=== PATIENT | male | born 1970 | race Caucasian/White ===

== ENCOUNTER 2017-05-03 09:26 | Day surgery (SDC) | payer OTHER ==
[2017-05-02 14:49] VITALS: BMI 24.4
[~2017-05-03 09:26] MED LIST: BUPIVACAINE HCL/PF 0.25% (2.5MG/ML) 10 ML VIAL IJ ONE; methylPREDNISolone ACET (DEPO) 40 MG/1 ML VIAL IM ONE; oxyCODONE HCL 10 MG SUSTAINED ACTING TABLET PO ONE
--- NOTE | 2017-05-03 11:03 | HP ---
History & Physical Update - History History: No Change - Physical Physical: No Change - Assessment Assessment: No Change - Plan Plan: No Change
[2017-05-03] MEDS ORDERED: THROMBIN (BOVINE) 5,000 UNIT VIAL TP ONE ×2 (11:14→12:52)
[2017-05-03] MEDS ORDERED: methylPREDNISolone ACET (DEPO) 40 MG/1 ML VIAL ONE (11:14)
[2017-05-03] MEDS ORDERED: BUPIVACAINE HCL/PF 2.5 MG/ML - 30 ML VIAL IJ ONE (11:15)
[2017-05-03] MEDS ORDERED: LIDOCAINE 1%/EPI 1:100000 (20 ML MULTI DOSE VIAL) ONE (11:15)
[2017-05-03] MEDS ORDERED: PROPOFOL 20 ML ONE ×3 (11:25→11:27)
[2017-05-03] MEDS ORDERED: MIDAZOLAM HCL 2 MG/2 ML SINGLE DOSE VIAL ONE (11:25)
[2017-05-03] MEDS ORDERED: BUPIVACAINE HCL/PF 0.5% (5MG/ML) 10 ML VIAL ONE (11:35)
[2017-05-03] MEDS ORDERED: ceFAZolin SODIUM 1 GM VIAL ONE (11:40)
[2017-05-03] MEDS ORDERED: LIDOCAINE 1%/EPI 1:100000 (20 ML MULTI DOSE VIAL) INF ONE (12:10)
[2017-05-03] MEDS ORDERED: DEXAMETHASONE SOD PHOSPHATE 4 MG/1 ML VIAL ONE (12:17)
[2017-05-03] MEDS ORDERED: ONDANSETRON 4 MG/2 ML VIAL ONE (12:17)
[2017-05-03] MEDS ORDERED: BUPIVACAINE HCL/PF 0.25% (2.5MG/ML) 10 ML VIAL IJ ONE ×2 (13:04)
[2017-05-03] MEDS ORDERED: methylPREDNISolone ACET (DEPO) 40 MG/1 ML VIAL IM ONE (13:04)
[2017-05-03] MEDS ORDERED: PROMETHAZINE HCL 25 MG/1 ML VIAL IVPUSH PRN (13:34)
[2017-05-03] MEDS ORDERED: oxyCODONE HCL 5 MG TABLET PO PRN (13:34)
[2017-05-03] MEDS ORDERED: LACTATED RINGERS SOLUTION 1,000 ML IV SCH (13:45)
--- NOTE | 2017-05-03 15:02 | OP ---
Operative Note - Note: Operative Date: 05/03/17 Pre-Operative Diagnosis: L5-S1 spinal stenosis Operation: L5-S1 laminectomy Post-Operative Diagnosis: Same as Pre-op Surgeon: José Subramanian Dry Wall Installer: Dari De La Cruz Anesthesiologist/METAL REFINER: Bright Riggs Anesthesia: Spinal Estimated Blood Loss (mls): 20 Fluid Volume Replaced (mls): 1,400 Operative Report Dictated: Yes
--- NOTE | 2017-05-03 15:04 | SURG ---
Surgery Test Engineer Note Test Engineer: Dari De La Cruz PA-C Date of Service: 05/03/17 Diagnosis: L5-S1 spinal stenosis Procedure: L5-S1 laminectomy I was present for the entirety of the operative procedure. For further detail, please refer to operative report. Visit type - Case Type Case Type: Scheduled Admission - Emergency Emergency Visit: No - New patient This patient is new to me today: Yes Date on this admission: 05/03/17 - Critical Care Critical Care patient: No
[2017-05-03 16:55] VITALS: BP 125/67; PULSE 67; TEMP 98
--- NOTE | 2017-05-04 11:44 | OP ---
DATE OF OPERATION: 05/03/2017 PREOPERATIVE DIAGNOSIS: Spinal stenosis, L5-S1 POSTOPERATIVE DIAGNOSIS: Spinal stenosis, L5-S1. PROCEDURE: Laminectomy, L5-S1. SURGEON: José Subramanian MD BONDERIZER OPERATOR: SHARLA Camarena ESTIMATED BLOOD LOSS: 50 mL. INTRAVENOUS FLUIDS: Per Anesthesia. ANESTHESIA: Spinal. COMPLICATIONS: None. DISPOSITION: Patient brought to the PACU in stable condition. INDICATIONS FOR SURGERY: The patient is a 46-year-old gentleman who has been suffering from pain from his back down his legs. X-rays and MRI were completed, which noted that he had spinal stenosis at L5-S1. He had gone through an exhaustive course of treatment for this which included medications, physical therapy, as well as injections. Unfortunately, his pain continued to persist despite all this. At this point, risks, benefits, and alternatives were discussed, and the patient consented to surgery. OPERATIVE NOTE: Patient was brought to the operating room by the anesthesia staff. After appropriate patient identification was performed and spinal anesthesia was given, he was placed prone onto the Nikhil frame with all areas of bony prominences well padded. At this time, Tuohy needles were placed into his back to tucker off the L5-S1 segment. An x-ray was taken to confirm the needles track. The needle was removed, and 10 mL of lidocaine with epinephrine was injected into his back at this time. His back was prepped and draped in a sterile manner. At this point, a time-out was completed. An incision was made from the top of L5 down to the bottom of S1. Dissection was carried down to the fascia. Fascia was split open at this time. An appropriate retractor was placed in. A spinal needle was placed onto the L5 lamina. An x-ray confirmed this was the L5-S1 level. . At this point, the microscope was brought in. The interspinous ligament at L5-S1 was removed. Portions of the spinous processes at L5 and S1 were removed. Portions of the L5-S1 lamina were removed. The segment was identified and removed. A complete decompression was performed such that by the end of the procedure, the S1 nerve root appeared to be well decompressed. All bleedings were controlled at this time. Steroids were placed over the nerve root and Gelfoam was placed over that. The fascia was closed with a No. 1 Vicryl suture. The subcutaneous tissues were closed with 2-0 Vicryl suture. Skin was closed with 3-0 Monocryl suture. Dermabond was applied. Steri-Strips were applied, and sterile dressings applied. Patient was placed supine on the OR bed and brought to the PACU in stable condition. JOSÉ SUBRAMANIAN M.D. [id number]
== END 2017-05-03 15:40 | disposition home or self-care (01) ==
LOC: FASU 09:26
PROVIDERS: ATTEND Orthopaedic Surgery Orthopaedic Surgery of the Spine
PROC: 01NB0ZZ Release Lumbar Nerve, Open Approach (ICD-10-PCS; principal; 2017-05-03 12:20)
DX: M48.07 Spinal stenosis, lumbosacral region (principal)
CPT/HCPCS: 72100-TC; 76000-TC; 94760